=== PATIENT | male | born 1950 | race Caucasian/White ===

== ENCOUNTER 2016-09-19 11:44 | Emergency (ER) | payer OTHER, MEDICARE ==
[~2016-09-19 11:44] MED LIST: ALLOPURINOL300 M1 PO; ASPIRIN81 M1 PO; ATORVASTATIN CA40 M1 PO; BISOPROLOL FUMAR5 M1 PO; CENTRUM FLAVO100 MCG PO; CYCLOBENZAPRINE5 M1 PO; GABAPENTIN300 M1 PO; NIACIN1000 M1 PO; NORCO 5-325 TA1 EACH PO; OMEPRAZOLE40 M2 PO; RANEXA500 M1 PO; SODIUM CHLOR1 GM/TAB PO
[2016-09-19] MEDS ORDERED: LOSARTAN-HCTZ1 EAC5 PO (12:48)
[2016-09-19] MEDS ORDERED: FISH OIL 11000 MG/CA PO (12:49)
== END 2016-09-19 13:31 ==
LOC: EDMED 11:44
DX: S42.201A Unspecified fracture of upper end of right humerus, initial encounter for closed fracture (principal); K21.9 Gastro-esophageal reflux disease without esophagitis; I10 Essential (primary) hypertension; I25.2 Old myocardial infarction; Z87.891 Personal history of nicotine dependence; W01.0XXA Fall on same level from slipping, tripping and stumbling without subsequent striking against object, initial encounter